=== PATIENT | female | born 1975 | race African-American/Black ===

== ENCOUNTER 2020-10-27 08:24 | Emergency (ER) | payer OTHER, MEDICAID ==
[~2020-10-27] VITALS: Ht 172.7 cm; Wt 105.2 kg
--- NOTE | 2020-10-27 08:25 | NUR ---
PT BIBA TO BED 10.
[2020-10-27 08:31] VITALS: BP 124/66
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
--- NOTE | 2020-10-27 09:09 | NUR ---
PT TAKEN TO RADIOLOGY VIA W/C.
--- NOTE | 2020-10-27 09:28 | NUR ---
PT BROUGHT BACK FROM RADIOLOGY VIA W/C.
[2020-10-27] MEDS ORDERED: IBUP-2213 PO (10:29)
[2020-10-27] MEDS: HYDROcodone/APAP 5/325 MG 1 TAB TAB PO ONE (10:40)
[2020-10-27] MEDS: ONDANSETRON 4 MG ODT PO ONE (10:40)
[2020-10-27 11:01] VITALS: BP 124/66
== END 2020-10-27 10:45 | disposition home or self-care (01) ==
LOC: MED 08:24
DX: T23.101A Burn of first degree of right hand, unspecified site, initial encounter (principal); S60.222A Contusion of left hand, initial encounter; M25.572 Pain in left ankle and joints of left foot; R07.89 Other chest pain
CPT/HCPCS: 71046; 73130; 73610; 99284; Q0162